=== PATIENT | male | born 1985 | race Caucasian/White ===

== ENCOUNTER 2021-08-15 05:58 | Outpatient (CLI) | payer SELFPAY | END 2021-08-15 05:59 | disposition critical access hospital (66) | LOC: EMS 05:58 | DX: R44.1 Visual hallucinations (principal); R46.89 Other symptoms and signs involving appearance and behavior; Z78.1 Physical restraint status | CPT/HCPCS: A0425; A0429 ==

== ENCOUNTER 2021-08-15 06:18 | Emergency (ER) | payer MEDICAID ==
[2021-08-15] MEDS ORDERED: OLANZapine ODT 5 MG TABLET TL ONE ×2 (06:30→16:43)
--- NOTE | 2021-08-15 06:33 | ED Physician Documentation ---
PD HPI MHE - Stated complaint Stated Complaint: MHE - History obtained from History obtained from: Patient, EMS (EMS reports they were called to the apartment where the patient and his girlfriend live. He apparently was having unfocused thoughts and seemed anxious. No report of suicidal or homicidal ideation. No injuries reported. Patient denies substance abuse. Medic states patient wanted to "get help".) - History of Present Illness Primary symptom: Other (pressured and tangential speech. Religiosity.). No: Suicidal ideation Timing - onset: Unknown Contributing factors: Other (report of TBI years ago. No noted visits in our system (still registering).). No: Substance abuse - ETOH, Substance abuse - drugs Review of Systems Unable to obtain: Other (unfocused and not answering questions, just talking about tangential topics.) PD PAST MEDICAL HISTORY - Present Medications Home Medications: Ambulatory Orders Medication Instructions Recorded Confirmed Home Medications Unobtainable 08/15/21 08/15/21 [HOME MEDICATIONS UNOBTAINABLE] - Allergies Allergies/Adverse Reactions: Allergies Allergy/AdvReac Type Severity Reaction Status Date / Time Penicillins Allergy Unknown Verified 08/15/21 06:29 PD ED PE NORMAL - Vitals Vital signs reviewed: Yes - General General: Alert and oriented X 3, Well developed/nourished, Other (pressured speech and tangential. Unfocused. Religiousity and moralistic ("the truth will set us free, and that is the truth" repeated often, referencing his father in [facility], and his mother here on earth). No suicidal statements.) - HEENT HEENT: Atraumatic, PERRL, EOMI - Derm Derm: Normal color, Warm and dry - Neuro Neuro: No motor deficit, No sensory deficit, Normal speech Results - Vitals Vitals: Vital Signs - 24 hr 08/15/21 06:29 Temperature 36.9 C Heart Rate 115 H Respiratory 18 Rate Blood Pressure 174/101 H O2 Saturation 100 Oxygen O2 Source Room air PD MEDICAL DECISION MAKING - ED course Complexity details: considered differential (apparent psychosis. Unknown if drug related. He does not answer about prior psych disorders. ), d/w patient ED course: Will offer PO meds to help with thought process. Staff working to verbally focus patient. Verbal report to oncoming Dr. Laws.
--- NOTE | 2021-08-15 10:33 | TELEPSYCH PHYS NOTE ---
Telepsych Consultation Note Consult: Name: Oliver Calzada :1985 Date: 08/15/2021 Time: Location of patient: [place] Location of doctor:[place] Length of consult:10 minutes This evaluation was conducted via video telepsychiatry with the assistance of onsite staff Reason for consult: psychosis Requested by: Dr. Laws History of Present Illness: 36 year old male with a history of traumatic brain injury he presented to the emergency room via EMS with erratic behavior new onset psychosis. the patient is agreeable to the interview via tele . the patient reports that the sees things everyone else sees. he reports that he had an eye opening experience. he reports he reports that now others are saying things differently. He reports he feels as though they're playing tricks on him. He reports he doesn't feel comfortable answering questions as he feels as though he needs a manager medical affairs to do so. When explaining the typical evaluation by a psychiatrist to ask him questions about what's going on what he's been experiencing to see how we can help him and help him figure out why he's in the emergency room period he reports continuously he thinks he needs a manager medical affairs to do so. 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 Collateral contacted Y/N no Name Phone #? , Relationship to the patient . If N, (No Answer/None available/Patient meets criteria for admission/Other free text reason)the patient reports not his business to give out others information. He reports that he thinks that he would have to have people facilitate this Sleep issues: Yes - Quantity: he reports he did not sleep last night Quality: Psychiatric History/Treatment History: he reports she has seen a psychiatrist before. Past diagnoses: traumatic bearing injury per record Hospitalizations: Y/N if Y describe: unknown Current Treatment: Medication management no Therapy no Suicide Assessment: PSS-3: 1) Over the past 2 weeks have you felt down, depressed or hopeless? Y/N unable to assess due the patient paranoia 2) Over the past 2 weeks have you had thoughts of killing yourself? Y/N unable to assess due to patients paranoia 3) Have you ever in your life attempted to kill yourself? Y/N unable to assess due to patient paranoia If yes, then when? Within the past 6 months Y/N unable to assess PSS-3 Secondary Screen If #2 is yes or #3 is yes within the past 6 months, then complete secondary screen: 1) Positive on PSS-3 questions 2 & 3 active SI with a past attempt? Y/N 2) Have you been thinking about how you might kill yourself? Y/N 3) Have you had some intention of acting on your thoughts? Y/N 4) Lifetime psychiatric hospitalization? Y/N 5) Has drinking or substance abuse ever been a problem for you? Y/N 6) Current irritability, agitation, or aggression? Y/N PSS-3 Secondary Screen Scoring: (Mild/Moderate/Severe) Mild (0-2) No current attempt and no plan/intent Moderate (3-4) No current attempt, Plan OR intent but not both Severe (5-6) Current Attempt with Plan AND intent [employer] ([employer])-based Safety Assessment: Risk Factors Stressors: Unable to assess due to patient paranoia Attempts/Self-injury: Y/N if Y then describe unable to assess Impulsivity: Y/N if Y then describe unable to assess Drug/Alcohol History: Y/N - if Y then describe: unable to assess Trauma history: Y/N - if Y then describe: per his chart he has a history of a traumatic brain injury Access to firearms: Y/N - if Y then describe: unable to assess HI/Violence/Property destruction: Y/N - if Y then describe: unable to assess Legal: Y/N - if Y then describe: unable to assess Family Psych History: Y/N - if Y then describe: unable to assess Family History of suicide: Y/N Protective Factors Internal: (unknown External: Social supports/ Therapeutic relationships: Y/N - if Y then describe friends Relationship history: single Living situation: Homeless Y/N if no describe: he reports he lives with friends Employment: Y/N - if Y then describe: he was too paranoid to say Education: unknown Responsibility to family/children/work: Y/N - if Y then describe: Unable to assess Future orientation: Y/N - if Y then describe: unable to assess Medical History: history of traumatic brain injury per record Medications & Freq: patient reports two personal of information Allergies: Penicillin Mental Status Exam: Appearance and attire: he's casually groomed and dressed Attitude and behavior: guarded and agitated Psychomotor agitation/abnormal movements: psychomotor hyperactivity Speech: normal rate and anxious tone Affect and mood: restricted and anxious Association and thought processes: loose associations Thought content: he's very paranoid Perception: unable to fully assess secondary to patient paranoia Sensorium, memory, and orientation: alert and oriented times 3 Intellectual functioning: his language skills are average Insight and judgment: poor Impression/Risk Assessment: Current Suicide Risk Elevated?: Y/N unable to fully assess his suicide risk Current Violence Risk Elevated?: Y/N due to his paranoia he is at risk for aggression Issues with ability to care for self?: Y/N yes Summary: 36 year old male with a history of prophetic brain injury who presented to the emergency room via EMS due to increasing paranoid behaviors . The patient hasn't lost left the home in one month. He was allowed to stay with a friend due to losing his home. Hhsorin is very guarded and paranoid that is unable to get history even after explaining the rationale for the history and what history might be necessary. He redirects the conversation. Yeah second motor agitation. If the patient did not have a place to stay he would not be able to provide for himself. He would not be able to maintain a job. His paranoia would lead to him too being on the streets at this time. Recommend inpatient hospitalization would have a DCR evaluation for possibility of involuntary Diagnosis: unspecified psychosis Rule out bipolar disorder most recent episode manic Rule out schizophrenia History of traumatic brain injury CPT code:32758 Treatment Plan: Level of Care: inpatient Psychiatric Clearance: N Observation level 1:1 needed?: close observation Pharmacological: agree with zyprexa 5MG po q hs Patient psychotic? Y/N if Y was standing antipsychotic medication started Y/N yes Therapy: supportive Follow up needed while in hospital?: Y/N/NA if Y then frequency Daily Discussed plan with onsite clinical team lead, who? (Y/N): Who Dr Laws Other: List names and roles of persons who participated in consult: Dr. Laws
[2021-08-15] MEDS ORDERED: KETAMINE 500 MG/10 ML VIAL ONE ×2 (13:17→14:22)
[2021-08-15] MEDS ORDERED: OLANZapine ODT 5 MG TABLET TL STA (16:28)
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
[2021-08-15 20:26] LABS: ACETAMINOPHEN < 10 ug/mL (10-30); ALBUMIN 4.9 g/dL (3.2-5.5); ALBUMIN/GLOBULIN RATIO 1.4 (1.0-2.2); ALKALINE PHOSPHATASE 75 IU/L (42-121); ALT ALANINE AMINOTRANSFERASE 28 IU/L (10-60); AST ASPARTATE AMINOTRANSFERASE 25 IU/L (10-42); BILIRUBIN,TOTAL 1.4 mg/dL (0.2-1.0); BUN - BLOOD UREA NITROGEN 6 mg/dL (6-20); CALCIUM 10.1 mg/dL (8.5-10.3); CARBON DIOXIDE - CO2 20 mmol/L (21-32); CHLORIDE 99 mmol/L (101-111); CREATININE 0.8 mg/dL (0.6-1.2); GFR - MDRD 109 (>89); GLUCOSE 132 mg/dL (70-100); LIPASE 31 U/L (22-51); POTASSIUM 3.3 mmol/L (3.5-5.0); SALICYLATE < 6.0 mg/dL; SODIUM 136 mmol/L (135-145); TOTAL PROTEIN 8.3 g/dL (6.7-8.2)
[2021-08-15 20:35] LABS: BASOPHILS # (AUTO) 0.1 10^3/uL (0.0-0.1); BASOPHILS % (AUTO) 0.6 %; HCT - HEMATOCRIT 45.5 % (42.0-52.0); HGB - HEMOGLOBIN 15.8 g/dL (14.0-18.0); LYMPHOCYTES # (AUTO) 1.6 10^3/uL (1.5-3.5); LYMPHOCYTES % (AUTO) 11.3 %; MEAN CORPUSCULAR HEMOGLOBIN 30.6 pg (27.0-31.0); MEAN CORPUSCULAR HGB CONC 34.7 g/dL (32.0-36.0); MEAN CORPUSCULAR VOLUME 88.2 fL (80.0-94.0); MONOCYTES # (AUTO) 1.5 10^3/uL (0.0-1.0); MONOCYTES % (AUTO) 10.6 %; NEUTROPHILS # (AUTO) 11.1 10^3/uL (1.5-6.6); NEUTROPHILS % (AUTO) 76.9 %; PLT - PLATELET COUNT 401 10^3/uL (130-450); RED BLOOD COUNT 5.16 10^6/uL (4.70-6.10); RED CELL DISTRIBUTION WIDTH 12.6 % (12.0-15.0); WHITE BLOOD COUNT 14.4 x10^3/uL (4.8-10.8)
[2021-08-15 20:58] LABS: B. PARAPERTUSSIS- RESP PCR PAN NOT DETECTED; B. PERTUSSIS- RESP PCR PANEL NOT DETECTED; C. PNEUMONIAE- RESP PCR PANEL NOT DETECTED; CORONAVIRUS 229E-RESP PCR NOT DETECTED; CORONAVIRUS HKU1-RESP PCR NOT DETECTED; CORONAVIRUS NL63-RESP PCR NOT DETECTED; CORONAVIRUS OC43-RESP PCR NOT DETECTED; HUMAN METAPNEUMOVIRUS NOT DETECTED; INFLUENZA A- RESP PCR PANEL NOT DETECTED; INFLUENZA B - RESP PCR PANEL NOT DETECTED; M. PNEUMONIAE- RESP PCR PANEL NOT DETECTED; PARAINFLUENZA VIRUS 1 NOT DETECTED; PARAINFLUENZA VIRUS 2 NOT DETECTED; PARAINFLUENZA VIRUS 3 NOT DETECTED; PARAINFLUENZA VIRUS 4 NOT DETECTED; RHINOVIRUS/ENTEROVIRUS NOT DETECTED; RSV- RESP PCR PANEL NOT DETECTED; SARS-CoV-2 -RESP PCR PANEL NOT DETECTED
[2021-08-15] MEDS ORDERED: OLANZapine 10 MG VIAL IM STA (23:53)
[2021-08-16 00:15] LABS: MUDS CUTOFF CONCENTRATIONS CUTOFF CONC BELOW:
[2021-08-16] MEDS ORDERED: OLANZapine 10 MG VIAL IM STA (00:22)
[2021-08-16 00:25] LABS: BILIRUBIN,URINE NEGATIVE (NEGATIVE); GLUCOSE, URINE (UA) NEGATIVE (NEGATIVE); KETONES,URINE (UA) >=80 mg/dL (NEGATIVE); LEUKOCYTE ESTERASE, URINE TRACE (NEGATIVE); NITRITE,URINE NEGATIVE (NEGATIVE); OCCULT BLOOD,URINE NEGATIVE (NEGATIVE); PROTEIN,URINE NEGATIVE (NEGATIVE); UROBILINOGEN,URINE 0.2 (NORMAL) E.U./dL (NORMAL)
--- NOTE | 2021-08-16 00:26 | ED Physician Documentation ---
Face to Face for Restraints - Immediate Situation Face to Face Evaluation Date: 08/16/21 Face to Face Evaluation Time: 00:23 Restraint Situation: Chemical Patient's Reactions to the Intervention: Fighting restraints, Swearing, Demanding, Other (trying to bite staff; yelling; repeatedly requests water but tried to bite staff when they tried to give him water) - Behavioral Condition Attitude: Indifferent Behavior: Uncooperative, Belligerent, Agitated Orientation: Person Mood: Labile, Angry Behavioral Condition Comments: unable to assess orientation as he does not answer my questions but makes demands rather than answer any questions - Evaluation Review of Systems: Unable to obtain reliable ROS due to patient not cooperative, loudly demanding water and removal of restraints Pertinent History/Illicit Drugs/Medications/Results: UDS results are currently pending. Has been in ED for over 18 hours for odd and agitated behavior; prior to my shift, he required physical and chemical restraints due to aggressive behavior with staff as well as with other patient - Plan Need to Continue or Terminate Violent or Chemical Restraint: needs to be awake, calm, oriented x 3, and cooperative
[2021-08-16 00:32] LABS: CLARITY,URINE CLEAR (CLEAR)
[2021-08-16 00:41] LABS: AMPHETAMINE SCREEN,URINE NEGATIVE (NEGATIVE); BACTERIA,URINE Rare /HPF (None Seen); BARBITURATE SCREEN,UR NEGATIVE (NEGATIVE); BENZODIAZEPINES SCREEN, URINE NEGATIVE (NEGATIVE); COCAINE SCREEN URINE NEGATIVE (NEGATIVE); METHADONE SCREEN, URINE NEGATIVE (NEGATIVE); METHAMPHETAMINES SCREEN, URINE NEGATIVE (NEGATIVE); OPIATE SCREEN, URINE NEGATIVE (NEGATIVE); OXYCODONE SCREEN, URINE NEGATIVE (NEGATIVE); PROPOXYPHENE SCREEN, URINE NEGATIVE (NEGATIVE); RBC,URINE 0-5 /HPF (0-5); SQUAMOUS EPITHELIAL CELL,UR FEW Squamous (<= Few); THC CANNABINOID SCREEN, URINE POSITIVE (NEGATIVE); TRICYCLIC ANTIDEPRESSANT,URINE NEGATIVE (NEGATIVE)
[2021-08-16 02:52] LABS: MAGNESIUM 2.2 mg/dL (1.7-2.8)
--- NOTE | 2021-08-16 03:49 | ED Physician Documentation ---
Face to Face for Restraints - Immediate Situation Face to Face Evaluation Date: 08/16/21 Face to Face Evaluation Time: 03:47 Restraint Situation: Locking Patient's Reactions to the Intervention: Asking for information, Swearing, Demanding - Behavioral Condition Attitude: Indifferent Behavior: Belligerent, Agitated Orientation: Person Mood: Labile, Angry - Evaluation Review of Systems: Unable to obtain reliable ROS due to patient not cooperative, loudly demanding water and removal of restraints Pertinent History/Illicit Drugs/Medications/Results: UDS results are currently pending. Has been in ED for over 18 hours for odd and agitated behavior; prior to my shift, he required physical and chemical restraints due to aggressive behavior with staff as well as with other patient - Plan Need to Continue or Terminate Violent or Chemical Restraint: needs to be awake, alert, oriented x 3, and appropriately conversant
[2021-08-16 03:53] VITALS: BP 128/72
--- NOTE | 2021-08-16 04:37 | ED Physician Documentation ---
ED Addendum - Addendum Addendum: 08/16/21 04:30 Received sign out from Dr. Laws at end of his shift; patient is pending DCR evaluation. He presented with odd behavior and required both physical and chemical restraint during ED stay due to aggressive and bizarre behavior that was not amenable to redirection and other less restrictive measures. At time of sign-out, plan was to have DCR evaluation. I subsequently was informed by ED RN that [facility] refused to dispatch DCR until UDS was obtained. Patient continues to be loud and uncooperative throughout my shift, although when I told him we need a urine specimen, he was able to give one; even this presented some difficulty, as he was exhibiting odd behavior and stopped urinating into the plastic urinal ED RN was holding in place and suddenly turned as if he was going to urinate on the floor. I had a second urinal available and I placed this such that he could c ontinue to urinate into appropriate receptical. He was making odd statements to me regarding wanting to speak to "the lead" (per patient), and repeatedly insisting "get me the lead, I need to speak to the lead". He was frequently yelling out during my shift odd statements such as "come to my voice" repeatedly. Eventually we were able to obtain the UDS as well as EKG, magnesium and cpk levels (the EKG, magnesium and cpk were requested by receiving facility as part of medical clearance). These test results are unremarkable, with marijuana noted on UDS 08/16/21 04:37 He is accepted to [facility] in [place]
--- NOTE | 2021-08-29 07:56 | ED Physician Documentation ---
ED Addendum - Addendum Addendum: 08/29/21 07:56 FINAL IMPRESSION: psychosis
== END 2021-08-16 08:29 ==
LOC: ED 06:18
DX: F29 Unspecified psychosis not due to a substance or known physiological condition (principal); Z87.820 Personal history of traumatic brain injury; Z78.1 Physical restraint status; Z20.822 Contact with and (suspected) exposure to COVID-19
CPT/HCPCS: 0202U; 36415; 51701; 80053; 80306; 80307; 80320; 80329; 81001; 82550; 83690; 83735; 84443; 85025; 87086; 93005; 99281; 99285; A9270; 81003

== ENCOUNTER 2021-11-19 15:56 | Outpatient (CLI) | payer MEDICAID | END 2021-11-19 15:57 | disposition critical access hospital (66) | LOC: EMS 15:56 | DX: R44.0 Auditory hallucinations (principal); R44.1 Visual hallucinations; R45.1 Restlessness and agitation | CPT/HCPCS: A0425; A0429; A0999 ==

== ENCOUNTER 2021-11-19 16:15 | Emergency (ER) | payer MEDICAID ==
[2021-11-19 16:53] LABS: BASOPHILS # (AUTO) 0.1 10^3/uL (0.0-0.1); BASOPHILS % (AUTO) 0.5 %; EOSINOPHILS # (AUTO) 0.2 10^3/uL (0.0-0.7); EOSINOPHILS % (AUTO) 1.9 %; HCT - HEMATOCRIT 40.1 % (42.0-52.0); HGB - HEMOGLOBIN 14.1 g/dL (14.0-18.0); LYMPHOCYTES # (AUTO) 2.8 10^3/uL (1.5-3.5); LYMPHOCYTES % (AUTO) 24.1 %; MEAN CORPUSCULAR HEMOGLOBIN 28.9 pg (27.0-31.0); MEAN CORPUSCULAR HGB CONC 35.2 g/dL (32.0-36.0); MEAN CORPUSCULAR VOLUME 82.2 fL (80.0-94.0); MEAN PLATELET VOLUME 10.5 fL (7.4-11.4); MONOCYTES # (AUTO) 1.1 10^3/uL (0.0-1.0); MONOCYTES % (AUTO) 9.6 %; NEUTROPHILS # (AUTO) 7.3 10^3/uL (1.5-6.6); NEUTROPHILS % (AUTO) 63.6 %; PLT - PLATELET COUNT 444 10^3/uL (130-450); RED BLOOD COUNT 4.88 10^6/uL (4.70-6.10); RED CELL DISTRIBUTION WIDTH 12.9 % (12.0-15.0); WHITE BLOOD COUNT 11.5 x10^3/uL (4.8-10.8)
[2021-11-19 16:57] LABS: ACETAMINOPHEN < 10 ug/mL (10-30); ALBUMIN 4.4 g/dL (3.2-5.5); ALBUMIN/GLOBULIN RATIO 1.4 (1.0-2.2); ALKALINE PHOSPHATASE 51 IU/L (42-121); ALT ALANINE AMINOTRANSFERASE 19 IU/L (10-60); AST ASPARTATE AMINOTRANSFERASE 23 IU/L (10-42); BILIRUBIN,TOTAL 0.7 mg/dL (0.2-1.0); BUN - BLOOD UREA NITROGEN 5 mg/dL (6-20); CALCIUM 9.3 mg/dL (8.5-10.3); CARBON DIOXIDE - CO2 22 mmol/L (21-32); CHLORIDE 89 mmol/L (101-111); CREATININE 0.6 mg/dL (0.6-1.2); ETOH - ETHANOL < 5.0 mg/dL; GFR - MDRD 152 (>89); GLUCOSE 146 mg/dL (70-100); LIPASE 31 U/L (22-51); POTASSIUM 2.9 mmol/L (3.5-5.0); SALICYLATE < 6.0 mg/dL; SODIUM 123 mmol/L (135-145); TOTAL PROTEIN 7.5 g/dL (6.7-8.2)
--- NOTE | 2021-11-19 16:58 | ED Physician Documentation ---
History of Present Illness - Stated complaint Stated Complaint: MHE - Chief complaint Chief Complaint: MHE - Additonal information Additional information: 36-year-old male presents to the emergency department requesting mental health evaluation. He appears well kept but seems very troubled and has a difficult time expressing his thoughts. He sighs frequently. He seems to be responding to internal stimuli. He makes statements such as "when I talk everything turned to gold." He believes that he hears voices but does not seem to have visual hallucinations. He denies that he wants to harm himself or anybody else. Pt does have a hx of TBI He was seen in this emergency department in early August for acute psychosis. He was ultimately detained and sent for psychiatric treatment and evaluation. Per EMS he should be on psychiatric meds that include Depakote and olanzapine but is not clear if he has not taken them or been able to have them refilled. Review of Systems Unable to obtain: Other Constitutional: reports: Reviewed and negative Cardiac: reports: Reviewed and negative Respiratory: reports: Reviewed and negative GI: reports: Reviewed and negative Skin: reports: Reviewed and negative Musculoskeletal: reports: Reviewed and negative Neurologic: reports: Reviewed and negative Psychiatric: reports: Hallucinations, Delusions, Anxiety, Insomnia. denies: Suicidal, Homicidal PD PAST MEDICAL HISTORY - Past Medical History Respiratory: Asthma Neuro: Head injury - Present Medications Home Medications: Ambulatory Orders Medication Instructions Recorded Confirmed Home Medications Unobtainable 08/15/21 08/15/21 [HOME MEDICATIONS UNOBTAINABLE] - Allergies Allergies/Adverse Reactions: Allergies Allergy/AdvReac Type Severity Reaction Status Date / Time Penicillins Allergy Unknown Verified 08/15/21 06:29 - Social History Does the pt smoke?: No Smoking Status: Never smoker Does the pt drink ETOH?: Yes PD ED PE EXPANDED - General General: Alert, Well developed/nourished - Cardiac Cardiac: Regular Rate, Radial strong equal - Respiratory Respiratory: Clear to ausultation enrique. No: Distress, Labored - Derm Derm: Normal color, Warm and dry. No: Rash - Extremities Extremities: Normal. No: Deformity, Tenderness - Neuro Neuro: Alert and Oriented X 3, CNII-XII intact - GCS Eye Opening: Spontaneous Motor: Obeys Commands Verbal: Oriented Total: 15 - Psych Psych: Anxious, Auditory hallucinations (Patient has a difficult time expressing himself. Seems to be responding to internalauditory hallucinations.) Results - Vitals Vitals: Vital Signs - 24 hr 11/19/21 16:24 Temperature 36.1 C L Heart Rate 88 Respiratory 20 Rate Blood Pressure 142/98 H Oxygen O2 Source Room air - Labs Labs: Laboratory Tests 11/19/21 11/19/21 11/19/21 16:37 16:37 16:37 WBC 11.5 H RBC 4.88 Hgb 14.1 Hct 40.1 L MCV 82.2 MCH 28.9 MCHC 35.2 RDW 12.9 Plt Count 444 MPV 10.5 Neut # (Auto) 7.3 H Lymph # (Auto) 2.8 [place] # (Auto) 1.1 H Eos # (Auto) 0.2 Baso # (Auto) 0.1 Absolute Nucleated RBC 0.00 Nucleated RBC % 0.0 Sodium 123 L Potassium 2.9 L Chloride 89 L Carbon Dioxide 22 Anion Gap 12.0 BUN 5 L Creatinine 0.6 Estimated GFR (MDRD) 152 Glucose 146 H Calcium 9.3 Total Bilirubin 0.7 AST 23 ALT 19 Alkaline Phosphatase 51 Total Protein 7.5 Albumin 4.4 Globulin 3.1 Albumin/Globulin Ratio 1.4 Lipase 31 TSH 0.55 Urine Color Urine Clarity Urine pH Ur Specific [place] Urine Protein Urine Glucose (UA) Urine Ketones Urine Occult Blood Urine Nitrite Urine Bilirubin Urine Urobilinogen Ur Leukocyte Esterase Ur Microscopic Review Urine Culture Comments Last Dose Date Last Dose Time Salicylates < 6.0 Urine Opiates Screen Ur Oxycodone Screen Urine Methadone Screen Ur Propoxyphene Screen Acetaminophen < 10 L Ur Barbiturates Screen Valproic Acid Ur Tricyclics Screen Ur Phencyclidine Scrn Ur Amphetamine Screen U Methamphetamines Scrn U Benzodiazepines Scrn Urine Cocaine Screen U Cannabinoids Screen Ethyl Alcohol < 5.0 SARS-CoV-2 (PCR) 11/19/21 11/19/21 11/19/21 16:37 17:05 17:50 WBC RBC Hgb Hct MCV MCH MCHC RDW Plt Count MPV Neut # (Auto) Lymph # (Auto) [place] # (Auto) Eos # (Auto) Baso # (Auto) Absolute Nucleated RBC Nucleated RBC % Sodium Potassium Chloride Carbon Dioxide Anion Gap BUN Creatinine Estimated GFR (MDRD) Glucose Calcium Total Bilirubin AST ALT Alkaline Phosphatase Total Protein Albumin Globulin Albumin/Globulin Ratio Lipase TSH Urine Color YELLOW Urine Clarity CLEAR Urine pH 6.0 Ur Specific [place] 1.025 Urine Protein NEGATIVE Urine Glucose (UA) NEGATIVE Urine Ketones >=80 H Urine Occult Blood NEGATIVE Urine Nitrite NEGATIVE Urine Bilirubin NEGATIVE Urine Urobilinogen 0.2 (NORMAL) Ur Leukocyte Esterase NEGATIVE Ur Microscopic Review NOT INDICATED Urine Culture Comments NOT INDICATED Last Dose Date Not Reportable Last Dose Time Not Reportable Salicylates Urine Opiates Screen NEGATIVE Ur Oxycodone Screen NEGATIVE Urine Methadone Screen NEGATIVE Ur Propoxyphene Screen NEGATIVE Acetaminophen Ur Barbiturates Screen NEGATIVE Valproic Acid 30.0 Ur Tricyclics Screen NEGATIVE Ur Phencyclidine Scrn NEGATIVE Ur Amphetamine Screen NEGATIVE U Methamphetamines Scrn NEGATIVE U Benzodiazepines Scrn NEGATIVE Urine Cocaine Screen NEGATIVE U Cannabinoids Screen POSITIVE H Ethyl Alcohol SARS-CoV-2 (PCR) NOT DETECTED PD MEDICAL DECISION MAKING - ED course Complexity details: reviewed results, re-evaluated patient, considered differential, d/w patient ED course: 36-year-old male who comes to the emergency department for a mental health evaluation. He does have a history of traumatic brain injury as well as recent previous acute psychosis in August of this year. He was detained and hospitalized ultimately. It sounds as though he should have been taking Depakote and olanzapine but is not clear to this provider if he has been taking them. He has a difficult time expressing his thoughts. States that when he sees things they turned gold. Screening labs are most significant for acute hyponatremia as well as hypokalemia. Previously unremarkable serum chemistry in August of this year. As patient seemed to be responding to internal stimuli I initially gave him 5 mg of Zyprexa orally. this seems to have allowed him to speak more fluidly. 0: Through the course of this emergency department stay the patient has been very resistant to IV management of his electrolyte deficiencies. He is not trusting nor is he understanding of the medical therapy is necessary that will allow him to gain access to psychiatric treatment. I did discuss this patient with our hospitalist Dr. Rangel, she would be very willing to admit the patient however as he has refused oral medicines including the potassium ordered early she does not think that she would be able to help him. 2024: I again discussed the care necessary with the patient. Though he does not understand that most psychiatric facilities will refuse him with even minor electrolyte derangement his certainly should be treated before further therapy can be rendered. He has begrudgingly agreed to take 40 of potassium orally, 1 g of salt as well as an additional Zyprexa. He will remain in the emergency department overnight. His labs will be re-obtained in the am. I have requested telepsych consult in order to help with further management and stabilization of his psychosis here in the ER. I will also request social work evaluation for him in the morning. Though he is resistant to the medical interventions for treatment of his electrolyte deficiency he truly desires psychiatric care, treatment and stabilization thus we will continue to work with him as best as we are able. [id number]: pt signed out to my night time colleague Dr. Julian
[2021-11-19] MEDS ORDERED: OLANZapine ODT 5 MG TABLET TL ONE ×2 (17:08→20:01)
[2021-11-19 17:11] LABS: MUDS CUTOFF CONCENTRATIONS CUTOFF CONC BELOW:
[2021-11-19 17:15] LABS: GLUCOSE, URINE (UA) NEGATIVE (NEGATIVE); KETONES,URINE (UA) >=80 mg/dL (NEGATIVE); LEUKOCYTE ESTERASE, URINE NEGATIVE (NEGATIVE); NITRITE,URINE NEGATIVE (NEGATIVE); OCCULT BLOOD,URINE NEGATIVE (NEGATIVE); PROTEIN,URINE NEGATIVE (NEGATIVE); UROBILINOGEN,URINE 0.2 (NORMAL) E.U./dL (NORMAL)
[2021-11-19 17:18] LABS: BILIRUBIN,URINE NEGATIVE (NEGATIVE); CLARITY,URINE CLEAR (CLEAR); ICTOTEST,URINE NEGATIVE
[2021-11-19 17:24] LABS: AMPHETAMINE SCREEN,URINE NEGATIVE (NEGATIVE); BARBITURATE SCREEN,UR NEGATIVE (NEGATIVE); BENZODIAZEPINES SCREEN, URINE NEGATIVE (NEGATIVE); COCAINE SCREEN URINE NEGATIVE (NEGATIVE); METHADONE SCREEN, URINE NEGATIVE (NEGATIVE); METHAMPHETAMINES SCREEN, URINE NEGATIVE (NEGATIVE); OPIATE SCREEN, URINE NEGATIVE (NEGATIVE); OXYCODONE SCREEN, URINE NEGATIVE (NEGATIVE); THC CANNABINOID SCREEN, URINE POSITIVE (NEGATIVE); TRICYCLIC ANTIDEPRESSANT,URINE NEGATIVE (NEGATIVE)
[2021-11-19 17:25] LABS: PROPOXYPHENE SCREEN, URINE NEGATIVE (NEGATIVE)
[2021-11-19] MEDS: POTASSIUM CHLORIDE 20 MEQ TABLET PO STA ×2 (19:16→19:19)
[2021-11-19] MEDS ORDERED: POTASSIUM CHLORIDE 20 MEQ TABLET PO STA (19:58)
[2021-11-19] MEDS ORDERED: SODIUM CHLORIDE 1 GM TABLET PO STA (20:17)
[2021-11-20] MEDS ORDERED: OLANZapine ODT 5 MG TABLET TL ONE (04:31)
[2021-11-20] MEDS ORDERED: clonazePAM 0.5 MG TABLET PO STA (04:32)
[2021-11-20 07:13] LABS: CALCIUM 9.6 mg/dL (8.5-10.3); CREATININE 0.7 mg/dL (0.6-1.2); POTASSIUM 4.8 mmol/L (3.5-5.0)
[2021-11-20 07:20] LABS: HCT - HEMATOCRIT 45.2 % (42.0-52.0); HGB - HEMOGLOBIN 15.7 g/dL (14.0-18.0); MEAN CORPUSCULAR HEMOGLOBIN 29.2 pg (27.0-31.0); MEAN CORPUSCULAR HGB CONC 34.7 g/dL (32.0-36.0); MEAN CORPUSCULAR VOLUME 84.2 fL (80.0-94.0); MEAN PLATELET VOLUME 10.9 fL (7.4-11.4); RED BLOOD COUNT 5.37 10^6/uL (4.70-6.10); RED CELL DISTRIBUTION WIDTH 13.3 % (12.0-15.0); WHITE BLOOD COUNT 8.4 x10^3/uL (4.8-10.8)
[2021-11-20] MEDS ORDERED: clonazePAM 0.5 MG TABLET PO PRN (07:56)
[2021-11-20] MEDS ORDERED: OLANZapine ODT 5 MG TABLET TL PRN (07:57)
--- NOTE | 2021-11-20 07:59 | ED Physician Documentation ---
ED Addendum - Addendum Addendum: 11/20/21 07:58 Took signout from overnight physician regarding this gentleman who is manic and psychotic. Telepsych physician saw him and we discussed the case. He recommends admission whether voluntary or involuntary. In the interim recommends the following medications: Zyprexa 10 mg p.o. twice daily scheduled, +5 mg p.o. twice daily as needed Clonazepam 1 mg p.o. 3 times daily as needed anxiety Depakote 250 mg p.o. 3 times daily Waiting for social work to arrive to evaluate the patient. Of note he was significantly hyponatremic and modestly hypokalemic yesterday, this is resolved. 11/20/21 10:34 Accepting facility requested CK, mag, and EKG. EKG done at 1028 hrs. discloses normal sinus rhythm with a rate of 72, no prolonged QT interval, no ST elevation or depression. This is a normal EKG. 11/20/21 14:[address] [facility] by Dr. Stephanie Vargas at approximately 2 PM. [place]ras are completed. He is stable for transport. [facility] Stable Diagnosis: 1. Psychosis, NOS
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
[2021-11-20] MEDS ORDERED: SODIUM CHLORIDE 1 GM TABLET PO SCH (09:00)
[2021-11-20] MEDS ORDERED: OLANZapine ODT 5 MG TABLET TL SCH (09:00)
[2021-11-20 10:35] VITALS: BP 121/83
[2021-11-20] MEDS ORDERED: DIVALPROEX DR 125 MG TABLET PO SCH (14:00)
== END 2021-11-20 15:19 ==
LOC: EDUNIT# → ED 16:15
DX: F31.2 Bipolar disorder, current episode manic severe with psychotic features (principal); F29 Unspecified psychosis not due to a substance or known physiological condition; Z20.822 Contact with and (suspected) exposure to COVID-19; E87.1 Hypo-osmolality and hyponatremia; E87.6 Hypokalemia
CPT/HCPCS: 36415; 80048; 80053; 80164; 80306; 80307; 80320; 80329; 81003; 82550; 83690; 83735; 84443; 85025; 85027; 87635; 90836; 93005; 99283; 99285; A9270; Q3014; 81001; 87086

== ENCOUNTER 2021-11-20 15:21 | Outpatient (CLI) | payer MEDICAID | END 2021-11-20 15:22 | disposition short-term general hospital (02) | LOC: EMS 15:21 | PROVIDERS: ATTEND Emergency Medicine | DX: F29 Unspecified psychosis not due to a substance or known physiological condition (principal); R41.0 Disorientation, unspecified | CPT/HCPCS: A0425; A0428 ==